=== PATIENT | female | born 1980 | race African-American/Black ===

== ENCOUNTER 2017-08-27 21:15 | Emergency (ER) | payer OTHER ==
[2017-08-27 21:24] VITALS: BP 123/76; BMI 33.5
[2017-08-27] MEDS ORDERED: NITROSTAT SL PRN (22:16)
[2017-08-27] MEDS ORDERED: ASPIRIN PO ONE (22:16)
[2017-08-27] MEDS ORDERED: LEVSIN/MAALOX/LIDOC VISC PO ONE (22:19)
[2017-08-27] MEDS ORDERED: TORADOL 60 MG VIAL IM ONE (22:19)
[2017-08-27] MEDS ORDERED: PHENERGAN INJ 25 MG IM ONE (22:21)
[2017-08-27] MEDS ORDERED: PHENERGAN INJ 25 MG ONE (22:26)
[2017-08-27] MEDS ORDERED: TORADOL 60 MG VIAL ONE (22:26)
[2017-08-27] MEDS ORDERED: LEVSIN/MAALOX/LIDOC VISC ONE (22:26)
[2017-08-27] MEDS ORDERED: ASPIRIN ONE (22:26)
--- NOTE | 2017-08-27 22:27 | DR.GENAD ---
HPI - PCP Primary Care Physician: [facility] - Complaint/Symptoms Chief Complaint Doctors Comments: Patient is complaining of LUQ and xiphoid and epigastric pain for the past week with the pain getting worst tonight. States she is having sharp pain in the lower chest around her ribs and side with the pain being 7 of 10. states she took a Percocet at home and it did not do much because she usually take the Oxycodone 30mg twice daily but she has been out for about 5-7 days and she goes back to her doctor next week to get more. She has been having dysuria but she denies hematuria, salma or any recent trauma. states her last bowel movement was yes the other day and it was a normal stool. Chief Complaint:: CHEST PAIN X 1 WEEK Self Treatment fo Chief Complaint: PERCOCET, BENTYL, PHENERGAN, ABX CEFTIN - Nurses notes reviewed Nurses Notes Review: Yes - Source History Provided: Patient - Mode of Arrival Mode of Arrival: Ambulatory - Timing Onset of Chief Complaint: 08/20/17 Came on: Gradually - Duration Duration: Constant How lon Duration: Days - Location Location: left side chest wall, epigasi - Severity Severity: Moderate - Modifying Factors Worsens:: movement Improves:: nothing PMH - PMH Past Medical History: Yes Past Medical History: Arthritis, Hypertension Past Surgical History: Yes Surgical History: Past Surgical History Comment: TUBAL, UTERUS SURGERY AND OVARY SURGERY - Family History History of Family Medical Conditions: Yes Family Medical History: Diabetes Mellitus, Cancer, [place], Coronary Artery Disease, Hypertension - Social History Does patient currently use any type of tobacco product: Yes Have you used tobacco products in the last 12 months: Yes Type of Tobacco Use: Cigarettes Does any household member use tobacco: No Alcohol Use: None Do you use any recreational Drugs:: No Lives With: Family Lives Where: Home - infectious screening In the last 2 months have you had wt loss of >10#?: NO Have you had fever, night sweats or hemotysis?: No Have you traveled outside the country in the last 6 months?: No Isolation: Standard ROS - Review of Systems Constitutional: No Symptoms Reported. negative: See HPI, Chills, Diaphoresis, Fever, Malaise, Weakness, Irritable, Fatigue, Loss of Appetite, Other Eyes: No Symptoms Reported ENTM: No Symptoms Reported, Nose Congestion Respiratoy: No Symptoms Reported Cardiovascular: No Symptoms Reported Gastrointestinal/Abdominal: No Symptoms Reported Genitourinary: No Symptoms Reported Neurological: No Symptoms Reported. negative: See HPI, Anxiety, Depressed, Emotional Problems, Headache, Numbness, Paresthesia, Pre-existing Deficit, Seizure, Tingling, Tremors, Weakness, Dizziness, Problems Walking, Speech Problem, Other Musculoskeletal: No Symptoms Reported Integumentary: No Symptoms Reported Hematologic/Lymphatic: No Symptoms Reported Endocrine: No Symptoms Reported Psychiatric: No Symptoms Reported PE - Vital Signs Vitals: Temperature 98 F Pulse Rate 79 Respiratory Rate 20 Blood Pressure 123/76 O2 Sat by Pulse Oximetry 99 - General Limitations: No Limitations General Appearance: Alert, In No Apparent Distress, Appears Intoxicated - Head Head Exam: Normal Inspection, Normocephalic. negative: Atraumatic - Eyes Eye exam: Normal Appearance, PERRL, EOMI. negative: Scleral Icterus, Conjunctival Injection, Nystagmus, Miosis, Mydrasis, Periorbital Swelling, Periorbital Tenderness, Other - ENT ENT Exam: Normal Exam, Normal Oropharynx, Normal External Ear Exam, Mucous Membranes Moist, TM's Normal Bilaterally External Ear Exam: Normal External Inspection TM/Canal Exam: Bilateral Normal Nose Exam: Normal Nose Exam Mouth Exam: Normal Inspection Throat Exam: Normal Inspection - Neck Neck Exam: Normal Inspection, Full ROM, Trachea Midline. negative: Tenderness, Meningismus, Lymphadenopathy, Thyromegaly, Other - Chest Chest Inspection: Normal Inspection, Symmetric Chest Wall Rise - Respiratory Respiratory Exam: Normal Lung Sounds Bilat Respiratory Exam: Bilateral Clear to Auscultation - Cardiovascular Cardiovascular Exam: Regular Rate, Normal Rhythm, Normal Heart Sounds - Abdominal Exam Abdominal Exam: Normal Inspection, Normal Bowel Sounds, Soft, Tenderness ( epigasric tenderness; lUQ tenderness), Dimnished Bowel Sounds Abdominal Tenderness: LUQ, Epigastrium, Diffuse, Moderate - Extremities Extremities Exam: Normal Inspection, Tenderness, Normal Capillary Refill. negative: Full ROM, Edema, Joint Swelling, Calf Tenderness, Other - Back Back Exam: Normal Inspection, Full ROM - Neurologic Neurological Exam: Alert, Oriented X3, CN II-XII Intact, Normal Gait, Reflexes Normal - Psychiatric Psychiatric Exam: Normal Affect, Normal Mood - Skin Skin Exam: Warm, Dry, Intact, Normal Color ROR - Labs Reviewed Laboratory Results Reviewed?: Yes (all labs and x-ray results reviewed and discussed with the patient) Result Diagrams: 08/27/17 22:25 08/27/17 22:25 Laboratory: WBC 7.4 X10^3/uL (3.6-10.0) 08/27/17: RBC 4.33 X10^6/uL (3.5-5.4) 08/27/17 22: Hgb 12.2 g/dL (12.0-16.0) 08/27/17: Hct 36.4 % (36.0-47.0) 08/27/17: MCV 84.0 fL (80.0-100.0) 08/27/17: MCH 28.2 pg (27.0-34.0) 08/27/17: MCHC 33.6 g/dL (33.0-35.0) 08/27/17: RDW 16.1 % (11.6-16.5) 08/27/17: Plt Count 205 X10^3/uL (150.0-450.0) 08/27/17 22: MPV 9.5 fL (7.4-11.0) 08/27/17 22: Neut % 55.3 % (42.0-75.0) 08/27/17: Lymph % 39.4 % (21.0-51.0) 08/27/17 22: [place] % 4.0 % (0.0-13.0) 08/27/17: Eos % 0.5 % (0.9-2.9) L 08/27/17: Baso % 0.8 % (0.2-1.0) 08/27/17: Neut # 4.1 x10^3/uL (2.2-4.8) 08/27/17: Lymph # 2.9 X10^3/uL (1.3-2.9) 08/27/17 22: [place] # 0.3 x10^3/uL (0.3-0.8) 08/27/17 22: Eos # 0.0 x10^3/uL (0.0-0.2) 10/14/17 22:25 Baso # 0.1 X10^3/uL (0.0-0.1) 08/27/17 22:25 Absolute Nucleated RBC 0.0 /100WBC 08/27/17 22:25 INR Target Range - 08/27/17 22:25 INR 0.94 (0.8-1.3) 08/27/17 22:25 PTT 31.1 SECONDS (22.9-36.5) 08/27/17 22:25 PTT Comment - 08/27/17 22:25 D-Dimer < 100 ng/mL (0-400) 08/27/17 22:25 Sodium 143 mmol/L (136-145) 08/27/17 22:25 Corrected Sodium TNP 08/27/17 22:25 Potassium 3.8 mmol/L (3.5-5.1) 08/27/17 22:25 Chloride 107 mmol/L (98-107) 08/27/17 22:25 Carbon Dioxide 28.1 mmol/L (21-32) 08/27/17 22:25 BUN 11 mg/dL (7-18) 08/27/17 22:25 Creatinine 0.94 mg/dL (0.55-1.02) 08/27/17 22:25 Est GFR (MDRD) Af Amer > 60 (>60) 08/27/17 22:25 Est GFR (MDRD) Non-Af > 60 (>60) 08/27/17 22:25 Glucose 79 mg/dL (65-99) 08/27/17 22:25 Calcium 9.1 mg/dL (8.5-10.1) 08/27/17 22:25 Corrected Calcium TNP 08/27/17 22:25 Magnesium 1.8 mg/dL (1.7-2.9) 08/27/17 22:25 Total Bilirubin 0.20 mg/dL (0.2-1.0) 08/27/17 22:25 AST 20 Units/L (15-37) 08/27/17 22:25 ALT 31 Units/L (12-78) 08/27/17 22:25 Alkaline Phosphatase 105 Units/L (46-116) 08/27/17 22:25 Creatine Kinase 96 Units/L (26-192) 08/27/17 22:25 CK-MB (CK-2) < 1.0 ng/mL (0-4.0) 08/27/17 22:25 CK/CKMB % Calc 1.0 % (<4) 08/27/17 22:25 Troponin I < 0.02 ng/mL (0-1.5) 08/27/17 22:25 Total Protein 7.0 g/dL (6.4-8.2) 08/27/17 22:25 Albumin 3.4 g/dL (3.4-5.0) 08/27/17 22:25 Globulin 3.6 g/dL (2.5-4.5) 08/27/17 22:25 Albumin/Globulin Ratio 0.9 Ratio (1.1-2.1) L 08/27/17 22:25 Amylase 49 Units/L (25-115) 08/27/17 22:25 Lipase 89 Units/L (73-393) 08/27/17 22:25 H. pylori IgG Antibody Positive (NEGATIVE) A 08/27/17 22:25 - XRAY XRAY Interpreted by: Radiologist (CT abdomen: No acute abnormalit identified) - EKG Rate: 72 [place]: Normal Rhythm: NSR Block: None Hypertrophy: None ST: Nonsp - Diagnosis Discharge Problem: Helicobacter positive gastritis, Diverticulosis of colon, Chest pain Abdominal pain Qualifiers: Abdominal location: epigastric Qualified Code(s): R10.13 - Epigastric pain - Discharge Plan Disposition: HOME, SELF-CARE Condition: Stable Prescriptions: Lansoprazole/Amoxiciln/Clarith [PrevPac 14-day pack] 1 dose PO BID #1 pkg - Follow ups/Referrals Follow ups/Referrals: MAUREEN,Real [Primary Care Provider] - 3 days MESFIN PARSON [STAFF PHYSICIAN] - 3 days - Instructions Instructions: Duodenitis, Helicobacter Pylori Antibodies Test, Diverticulosis
[2017-08-27 22:41] LABS: BASOPHILS # (AUTO) 0.1 X10^3/uL (0.0-0.1); BASOPHILS % (AUTO) 0.8 % (0.2-1.0); EOSINOPHILS % (AUTO) 0.5 % (0.9-2.9); HEMATOCRIT 36.4 % (36.0-47.0); HEMOGLOBIN 12.2 g/dL (12.0-16.0); LYMPHOCYTES # (AUTO) 2.9 X10^3/uL (1.3-2.9); LYMPHOCYTES % (AUTO) 39.4 % (21.0-51.0); MEAN CORPUSCULAR HEMOGLOBIN 28.2 pg (27.0-34.0); MEAN CORPUSCULAR HGB CONC 33.6 g/dL (33.0-35.0); MEAN PLATELET VOLUME 9.5 fL (7.4-11.0); MONOCYTES # (AUTO) 0.3 x10^3/uL (0.3-0.8); NEUTROPHILS # (AUTO) 4.1 x10^3/uL (2.2-4.8); NEUTROPHILS % (AUTO) 55.3 % (42.0-75.0); PLATELET COUNT 205 X10^3/uL (150.0-450.0); RED BLOOD COUNT 4.33 X10^6/uL (3.5-5.4); RED CELL DISTRIBUTION WIDTH 16.1 % (11.6-16.5); WHITE BLOOD COUNT 7.4 X10^3/uL (3.6-10.0)
[2017-08-27 22:59] LABS: BLOOD UREA NITROGEN 11 mg/dL (7-18); CALCIUM 9.1 mg/dL (8.5-10.1); CARBON DIOXIDE 28.1 mmol/L (21-32); CHLORIDE 107 mmol/L (98-107); CREATININE 0.94 mg/dL (0.55-1.02); SODIUM 143 mmol/L (136-145); TROPONIN I < 0.02 ng/mL (0-1.5); eGFR BLACK RACES > 60 (>60); eGFR NON BLACK RACES > 60 (>60)
--- NOTE | 2017-08-27 23:04 | RAD ---
HISTORY: 36-year-old female with chest pain. Study: Frontal view of the chest. Comparison: None. Findings: The trachea is midline. The cardiac silhouette is unremarkable. The lungs are clear without focal c onsolidation, effusion or pneumothorax. Soft tissues are unremarkable. Osseous structures are unrema rkable. IMPRESSION: 1. No acute cardiopulmonary disease. Reported By:
[2017-08-27 23:05] LABS: ALANINE AMINOTRANSFERASE 31 Units/L (12-78); ALBUMIN 3.4 g/dL (3.4-5.0); ALKALINE PHOSPHATASE 105 Units/L (46-116); AMYLASE 49 Units/L (25-115); ASPARTATE AMINO TRANSFERASE 20 Units/L (15-37); CREATINE KINASE 96 Units/L (26-192); CREATINE KINASE MB < 1.0 ng/mL (0-4.0); LIPASE 89 Units/L (73-393); MAGNESIUM 1.8 mg/dL (1.7-2.9)
--- NOTE | 2017-08-27 23:06 | CT ---
EXAM: CT ABDOMEN AND PELVIS WITHOUT CONTRAST INDICATION: Left upper quadrant pain COMPARISION: No priors available for comparison TECHNIQUE: Axial CT examination of the abdomen and pelvis was performed without intravenous contrast. Coronal an d sagittal reconstructions were created using the axial data. FINDINGS: The lung bases are clear. The liver, spleen, pancreas, adrenal glands, kidneys, and gallbladder are n ormal. There is no evidence of biliary ductal dilatation. The aorta and inferior vena cava are normal in caliber. The bowel loops are nonobstructed. No abnormal mass, lymphadenopathy, or fluid collection. Urinary bladder is normal. There is colonic diverticulosis. Uterus and adnexa appear unremarkable. The regional skeleton is intact. IMPRESSION: No acute abnormality identified. Reported By:
== END 2017-08-28 00:45 | disposition home or self-care (01) ==
LOC: ER 21:15
DX: K57.30 Diverticulosis of large intestine without perforation or abscess without bleeding (principal); R07.89 Other chest pain; B96.81 Helicobacter pylori [H. pylori] as the cause of diseases classified elsewhere; R10.13 Epigastric pain
CPT/HCPCS: 36415; 71010; 74176; 80053; 82150; 82550; 82553; 83690; 83735; 84484; 85025; 85378; 85610; 85730; 86677; 93005; 93010; 96372; 99283; J1885; J2550

== ENCOUNTER 2017-09-17 13:49 | Emergency (ER) | payer OTHER ==
[2017-09-17 13:55] VITALS: BP 121/80; BMI 32.9
[2017-09-17] MEDS ORDERED: DUONEB 0.5 MG/3 MG NEB ONE (14:46)
[2017-09-17] MEDS ORDERED: TORADOL 60 MG VIAL IM ONE (14:47)
[2017-09-17] MEDS ORDERED: DUONEB 0.5 MG/3 MG ONE (14:48)
--- NOTE | 2017-09-17 14:52 | DR.GENAD ---
HPI - PCP Primary Care Physician: DR. MIRELES - Complaint/Symptoms Chief Complaint Doctors Comments: Patient states she has been having vaginal and rectal bleeding for the past four days with cough, congestion, wheezing and epigastric pain. states she was given medicines for H pylori on her last visit but she did not get the prescription filled because her insurance will not pay for the medicines and she could not afford the PrevPak. 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 states she has a problem with hemorrhoids and use Preparation H at times. states she is takig cough syrup but no antibiotics. states she went to the [facility] and had an appointment yesterday and she called them today and they told her to go to the hospital for lab tests. She denies fever, chills, nauea or vomiting. Chief Complaint:: PATIENT STATED THAT SHE HAS BEEN HAVING VAGINAL OR RECTAL BLEED FOR THE LAST 4 DAYS. SHE STATED THAT SHE HAD A ABLASION DONE IN JANUARY. PT IS C/O CRAMPING. SHE ALSO STATED THAT SHE IS SWELLING. SHE IS HAVING REALLY BAD ABD. PAIN FOR THE SAME AMOUNT OF TIME. Self Treatment fo Chief Complaint: PATIENT WENT TO THE ER IN [place] YESTERDAY. - Nurses notes reviewed Nurses Notes Review: Yes - Source History Provided: Patient - Mode of Arrival Mode of Arrival: Ambulatory - Timing Onset of Chief Complaint: 09/13/17 Came on: Gradually - Duration Duration: Constant How lon Duration: Days - Location Location: epigastric pain - Severity Severity: Mild - Modifying Factors Worsens:: nothing Improves:: nothing PMH - PMH Past Medical History: Yes Past Medical History: Arthritis, Hypertension Past Surgical History: Yes Surgical History: - Family History History of Family Medical Conditions: Yes Family Medical History: Diabetes Mellitus, Cancer, [place], Coronary Artery Disease, Hypertension - Social History Does patient currently use any type of tobacco product: Yes Have you used tobacco products in the last 12 months: Yes Type of Tobacco Use: Cigarettes How many years tobacco product used: 20 Alcohol Use: None Do you use any recreational Drugs:: No Lives Where: Home - infectious screening In the last 2 months have you had wt loss of >10#?: NO Have you had fever, night sweats or hemotysis?: No Have you traveled outside the country in the last 6 months?: No Isolation: Standard ROS - Review of Systems Constitutional: No Symptoms Reported, Loss of Appetite. negative: See HPI, Chills, Diaphoresis, Fever, Malaise, Weakness, Irritable, Fatigue, Other Eyes: No Symptoms Reported. negative: See HPI, Eye Pain, Blurred Vision, Tearing, Discharge, Photophobia, Diplopia, Other ENTM: No Symptoms Reported, Nose Discharge, Nose Congestion Respiratoy: No Symptoms Reported, Non-Productive Cough, Wheezing. negative: See HPI, Productive Cough, Moist Cough, Dry Cough, Hacking Cough, Barking Cough , Brassy Cough, Orthopnea, Short of Breath, Stridor, Hemoptysis, Other Cardiovascular: No Symptoms Reported. negative: See HPI, Chest Pain, Edema, Palpitations, Syncope, Cyanosis, Skin Mottling, Other Gastrointestinal/Abdominal: No Symptoms Reported. negative: See HPI, Abdominal Pain, Constipation, Diarrhea, Nausea, Vomiting, Food Intolerance, Other Genitourinary: No Symptoms Reported. negative: See HPI, Discharge, Dysuria, Frequency, Hematuria, Pain, Bleeding, Other Neurological: No Symptoms Reported Musculoskeletal: No Symptoms Reported Integumentary: No Symptoms Reported. negative: See HPI, Change in Color, Change in Hair/Nails, Dryness, Lesions, Lumps, Rash, Itching, Wound, Bruises, Juandice, Other Hematologic/Lymphatic: No Symptoms Reported. negative: Easy Bleeding (rectal bleed) Endocrine: No Symptoms Reported Psychiatric: No Symptoms Reported PE - Vital Signs Vitals: Temperature 98.4 F Pulse Rate 101 Respiratory Rate 20 Blood Pressure 121/80 O2 Sat by Pulse Oximetry 97 - General Limitations: No Limitations General Appearance: Alert, In No Apparent Distress - Head Head Exam: Normal Inspection, Atraumatic, Normocephalic - Eyes Eye exam: Normal Appearance, PERRL, EOMI. negative: Scleral Icterus, Conjunctival Injection, Nystagmus, Miosis, Mydrasis, Periorbital Swelling, Periorbital Tenderness, Other - ENT ENT Exam: Normal Exam, Normal Oropharynx, Normal External Ear Exam, Mucous Membranes Moist, TM's Normal Bilaterally External Ear Exam: Normal External Inspection TM/Canal Exam: Bilateral Normal Nose Exam: Normal Nose Exam Mouth Exam: Normal Inspection. negative: Drooling, Trismus, Lip Swelling, Tongue Elevation, Tongue Swelling, Laceration, Other Throat Exam: Normal Inspection. negative: Tonsillar Erythema, Tonsillomegaly, Tonsillar Exudate, R Peritonsillar Mass, L Peritonsillar Mass, Muffled Voice, Other - Neck Neck Exam: Normal Inspection, Full ROM, Trachea Midline. negative: Tenderness, Meningismus, Lymphadenopathy, Thyromegaly, Other - Chest Chest Inspection: Normal Inspection, Symmetric Chest Wall Rise - Respiratory Respiratory Exam: Normal Lung Sounds Bilat, Prolonged Expiratory Phase Respiratory Exam: Bilateral Wheezing, Bilateral Rhonchi, Left Rales - Cardiovascular Cardiovascular Exam: Regular Rate, Normal Rhythm, Normal Heart Sounds. negative : Bradycardia, Tachycardia, Irregular Rhythm, Systolic Murmur, Diastolic Murmur , Rubs, Gallop, Clicks, JVD, +S1, +S2, +S3, +S4, Other - Abdominal Exam Abdominal Exam: Normal Inspection, Normal Bowel Sounds, Soft, Tenderness ( epigastric tenderness) Abdominal Tenderness: Epigastrium, Mild - Extremities Extremities Exam: Normal Inspection, Full ROM, Normal Capillary Refill. negative: Tenderness, Edema, Joint Swelling, Calf Tenderness, Other - Back Back Exam: Normal Inspection, Full ROM. negative: Tenderness, (R) CVA Tenderness, (L) CVA Tenderness, Muscle Spasm, Paraspinal Tenderness, Vertebral Tenderness, Rashes, (R) Sciatic Notch Tenderness, (L) Sciatic Notch Tendern, (R ) Straight Leg Raise, (L) Straight Leg Raise, Other - Neurologic Neurological Exam: Alert, Oriented X3, CN II-XII Intact, Normal Gait, Reflexes Normal - Psychiatric Psychiatric Exam: Normal Affect, Normal Mood - Skin Skin Exam: Warm, Dry, Intact, Normal Color - Other Exam Other Exam: Rectal Exam: Multiple external hemorrhoidal tags; no active bleeding; rectal vault empty; no signs of active bleeding. Dark vaginal blood in the vaginal vault. ROR - Labs Reviewed Laboratory Results Reviewed?: Yes (all labs and x-ray results reviewed and discussed with patient) Result Diagrams: 09/17/17 15:15 09/17/17 15:15 Laboratory: WBC 6.6 X10^3/uL (3.6-10.0) 09/17/17 15:15 RBC 4.29 X10^6/uL (3.5-5.4) 09/17/17 15:15 Hgb 12.2 g/dL (12.0-16.0) 09/17/17 15:15 Hct 36.3 % (36.0-47.0) 09/17/17 15:15 MCV 84.5 fL (80.0-100.0) 09/17/17 15:15 MCH 28.4 pg (27.0-34.0) 09/17/17 15:15 MCHC 33.6 g/dL (33.0-35.0) 09/17/17 15:15 RDW 15.6 % (11.6-16.5) 09/17/17 15:15 Plt Count 198 X10^3/uL (150.0-450.0) 09/17/17 15:15 MPV 8.9 fL (7.4-11.0) 09/17/17 15:15 Neut % 49.6 % (42.0-75.0) 09/17/17 15:15 Lymph % 43.7 % (21.0-51.0) 09/17/17 15:15 [place] % 5.4 % (0.0-13.0) 09/17/17 15:15 Eos % 0.8 % (0.9-2.9) L 09/17/17 15:15 Baso % 0.5 % (0.2-1.0) 09/17/17 15:15 Neut # 3.3 x10^3/uL (2.2-4.8) 09/17/17 15:15 Lymph # 2.9 X10^3/uL (1.3-2.9) 09/17/17 15:15 [place] # 0.4 x10^3/uL (0.3-0.8) 09/17/17 15:15 Eos # 0.1 x10^3/uL (0.0-0.2) 09/17/17 15:15 Baso # 0.0 X10^3/uL (0.0-0.1) 09/17/17 15:15 Absolute Nucleated RBC 0.1 /100WBC 09/17/17 15:15 Sodium 142 mmol/L (136-145) 09/17/17 15:15 Corrected Sodium TNP 09/17/17 15:15 Potassium 3.5 mmol/L (3.5-5.1) 09/17/17 15:15 Chloride 108 mmol/L (98-107) H 09/17/17 15:15 Carbon Dioxide 24.5 mmol/L (21-32) 09/17/17 15:15 BUN 9 mg/dL (7-18) 09/17/17 15:15 Creatinine 0.91 mg/dL (0.55-1.02) 09/17/17 15:15 Est GFR (MDRD) Af Amer > 60 (>60) 09/17/17 15:15 Est GFR (MDRD) Non-Af > 60 (>60) 09/17/17 15:15 Glucose 92 mg/dL (65-99) 09/17/17 15:15 Calcium 8.9 mg/dL (8.5-10.1) 09/17/17 15:15 Corrected Calcium TNP 09/17/17 15:15 Total Bilirubin 0.30 mg/dL (0.2-1.0) 09/17/17 15:15 AST 25 Units/L (15-37) 09/17/17 15:15 ALT 27 Units/L (12-78) 09/17/17 15:15 Alkaline Phosphatase 104 Units/L (46-116) 09/17/17 15:15 Total Protein 7.1 g/dL (6.4-8.2) 09/17/17 15:15 Albumin 3.7 g/dL (3.4-5.0) 09/17/17 15:15 Globulin 3.4 g/dL (2.5-4.5) 09/17/17 15:15 Albumin/Globulin Ratio 1.1 Ratio (1.1-2.1) 09/17/17 15:15 Stool Description Ifob collection tube 09/17/17 15:06 Stl Occult Blood (IFOB) Negative (NEGATIVE) 09/17/17 15:06 - Diagnosis Discharge Problem: External hemorrhoids, History of Helicobacter infection, Bronchitis, acute, with bronchospasm - Discharge Plan Disposition: 01 HOME, SELF-CARE Condition: Stable Prescriptions: Albuterol Sulfate [Proair Hfa] 8.5 gm IH Q4-6H PRN #1 [id number] PRN Reason: Clarithromycin [CLARITHROMYCIN 500 MG TAB *] 500 mg PO Q12H #20 tab Metronidazole [Flagyl Tab 500 mg] 500 mg PO BID PRN #20 tab PRN Reason: Omeprazole 20 mg PO BID PRN #30 capsule. PRN Reason: - Follow ups/Referrals Follow ups/Referrals: MAUREEN,None [Primary Care Provider] - 3 days MESFIN PARSON [STAFF PHYSICIAN] - 3 days - Instructions Instructions: Hemorrhoids, [id number], Disposable Sitz Bath, Duodenitis, Bronchospasm, Adult, Acute Bronchitis
[2017-09-17] MEDS ORDERED: TORADOL 60 MG VIAL ONE (14:53)
[2017-09-17 15:25] LABS: BASOPHILS % (AUTO) 0.5 % (0.2-1.0); EOSINOPHILS # (AUTO) 0.1 x10^3/uL (0.0-0.2); EOSINOPHILS % (AUTO) 0.8 % (0.9-2.9); HEMATOCRIT 36.3 % (36.0-47.0); HEMOGLOBIN 12.2 g/dL (12.0-16.0); LYMPHOCYTES # (AUTO) 2.9 X10^3/uL (1.3-2.9); LYMPHOCYTES % (AUTO) 43.7 % (21.0-51.0); MEAN CORPUSCULAR HEMOGLOBIN 28.4 pg (27.0-34.0); MEAN CORPUSCULAR HGB CONC 33.6 g/dL (33.0-35.0); MEAN CORPUSCULAR VOLUME 84.5 fL (80.0-100.0); MEAN PLATELET VOLUME 8.9 fL (7.4-11.0); MONOCYTES # (AUTO) 0.4 x10^3/uL (0.3-0.8); MONOCYTES % (AUTO) 5.4 % (0.0-13.0); NEUTROPHILS # (AUTO) 3.3 x10^3/uL (2.2-4.8); NEUTROPHILS % (AUTO) 49.6 % (42.0-75.0); PLATELET COUNT 198 X10^3/uL (150.0-450.0); RED BLOOD COUNT 4.29 X10^6/uL (3.5-5.4); RED CELL DISTRIBUTION WIDTH 15.6 % (11.6-16.5); WHITE BLOOD COUNT 6.6 X10^3/uL (3.6-10.0)
--- NOTE | 2017-09-17 15:32 | RAD ---
History: Cough and wheezing. Study: Two-view chest. Comparison: 08/27/2017. Findings: The trachea is midline. The cardiac silhouette is within normal limits. The lungs are clear without f ocal consolidation, pleural effusion or pneumothorax. The bony thorax is grossly unremarkable. Impression: Negative two-view chest. Reported By:
[2017-09-17 15:44] LABS: ALANINE AMINOTRANSFERASE 27 Units/L (12-78); ALBUMIN 3.7 g/dL (3.4-5.0); ALKALINE PHOSPHATASE 104 Units/L (46-116); ASPARTATE AMINO TRANSFERASE 25 Units/L (15-37); BLOOD UREA NITROGEN 9 mg/dL (7-18); CALCIUM 8.9 mg/dL (8.5-10.1); CARBON DIOXIDE 24.5 mmol/L (21-32); CHLORIDE 108 mmol/L (98-107); CREATININE 0.91 mg/dL (0.55-1.02); SODIUM 142 mmol/L (136-145); TOTAL PROTEIN 7.1 g/dL (6.4-8.2); eGFR BLACK RACES > 60 (>60); eGFR NON BLACK RACES > 60 (>60)
== END 2017-09-17 16:18 | disposition home or self-care (01) ==
LOC: ER 13:49
DX: K64.4 Residual hemorrhoidal skin tags (principal); J98.01 Acute bronchospasm; B96.81 Helicobacter pylori [H. pylori] as the cause of diseases classified elsewhere
CPT/HCPCS: 36415; 71020; 80053; 82270; 85025; 96372; 99283; J1885; J7620